=== PATIENT | male | born 1985 | race Caucasian/White ===

== ENCOUNTER 2019-12-01 19:21 | Emergency (ER) | payer SELFPAY ==
[~2019-12-01] VITALS: Ht 177.8 cm; Wt 75.0 kg
--- NOTE | 2019-12-01 19:27 | NUR ---
PT BIB [facility] FROM HOME AFTER BEING FOUND UNRESPONSIVE IN SHOWER. PT NARCAN ENROUTE 0.25. GCS UP TO 14 FROM 3. PT FINGER STICK 220 IN FIELD. PT VSS. PT FCS no SOB NOTED. GROSS NEURO INTACT, PURPOSEFUL MOVEMENT. NAD. PT APPEARS LETHARGIC AND DROWSY AT THIS TIME. PINPOINT PUPILS NOTED 2MM PT PLACED ON SPO2/BP/ECG MONITORING. WCTM.
--- NOTE | 2019-12-01 20:01 | NUR ---
PT RESTING ON GURNEY, EASILY ROUSED VIA SOUND. ANOx4, WCTM. WAITING FOR ERP EVAL.
[2019-12-01] MEDS ORDERED: NALOXONE 0.4 MG/ML, 1ML IM ONE (21:00)
--- NOTE | 2019-12-01 21:00 | NUR ---
late entry, pt care: pt given orange juice per request. pt able to sit up, nad, vss, nad, wctm. medicated per may.
[2019-12-01] MEDS ORDERED: NALOXONE 0.4 MG/ML, 1ML ONE (21:04)
--- NOTE | 2019-12-01 21:47 | NUR ---
pt resting on gurney, nad, appears comfortable, easily roused, wctm, waiting for dispo.
[2019-12-01 22:41] VITALS: BP 109/64
--- NOTE | 2019-12-01 22:42 | NUR ---
Patient given discharge instructions and they have confirmed that they understand the instructions. Patient ambulatory with steady gait. pt provided new dry clothing and taxi voucher. pt also given snacks. pt nad, vss. no belongings left in room after dc.
== END 2019-12-01 22:56 | disposition home or self-care (01) ==
LOC: ED 20:00
DX: F11.129 Opioid abuse with intoxication, unspecified (principal); F17.200 Nicotine dependence, unspecified, uncomplicated
CPT/HCPCS: 96372; 99283; J2310